=== PATIENT | male | born 1990 | race Caucasian/White ===

== ENCOUNTER → 2017-10-09 | Outpatient (CLI) | payer BC ==
[~2017-10-09] MED LIST: ATIVAN0.5 MG PO
== END ==
LOC: M.RAD 13:15
DX: N20.1 Calculus of ureter (principal); R35.0 Frequency of micturition

== ENCOUNTER → 2017-10-17 | Outpatient (CLI) | payer BC | LOC: M.RAD 10:40 | DX: N28.89 Other specified disorders of kidney and ureter (principal) ==

== ENCOUNTER 2021-02-19 02:13 | Observation (INO) | payer OTHER ==
[~2021-02-19] VITALS: Ht 180.3 cm; Wt 115.2 kg
--- NOTE | ~2021-02-19 | OP ---
[facility] [address] [place] [address] OPERATIVE REPORT Name: EBEN GORE Room: [address] Niki#: [id number] Admission: 02/19/21 Attend Phys: Paulino Rodriges Discharge: Date of : 89 Report #: [id number] THIS REPORT FOR: cc: FAM - Family physician unknown FAM - Family physician unknown Paulino Rodriges MD ~ DATE OF SURGERY: 02/19/2021 PREOPERATIVE DIAGNOSIS: Acute appendicitis. POSTOPERATIVE DIAGNOSIS: Acute appendicitis. OPERATION: Laparoscopic appendectomy. SURGEON: Paulino Rodriges MD ANESTHESIA: General. ESTIMATED BLOOD LOSS: Minimal. SPECIMENS: Appendix. DESCRIPTION OF PROCEDURE: After informed consent was obtained, the patient was brought to the operating room and placed supine. SCDs were placed and working, preoperative antibiotics were administered, general anesthesia was induced. The abdomen was prepped and draped in the usual sterile fashion. A 10 mm incision was made below the umbilicus. Fascia was incised and a trocar was placed. Pneumoperitoneum was established. Right upper quadrant and left lower quadrant 5 mm trocars were placed. The appendix was grasped and retracted anteriorly. Mesoappendix was ligated using the LigaSure device. The base of the appendix was then ligated using the PDS Endoloop. Appendix was cut and placed into an Endopouch. It was removed. The ports were removed under direct vision. The fascia was closed with a usekeq-af-wyxif 0 Vicryl. Skin was closed with 4-0 Monocryl. Incisions were dressed with Steri-Strips. COMPLICATIONS: None. DISPOSITION: The patient was taken to recovery in satisfactory condition. By: [id number] Rodriges MD /nt
[2021-02-19] MEDS ORDERED: ZESTRIL10 MG (02:26)
[2021-02-19 02:28] VITALS: BP 144/78
[2021-02-19 02:47] LABS: ABSOLUTE BASOPHILS 0.1 thou/uL (0.0-0.2); ABSOLUTE EOSINOPHILS 0.1 thou/uL (0.0-0.7); ABSOLUTE MONOCYTES 1.3 thou/uL (0.0-1.2); ABSOLUTE NEUTROPHILS 11.8 thou/uL (1.6-8.1); BASOPHILS 0.6 %; EOSINOPHILS 0.6 %; HEMATOCRIT 44.8 % (42.0-52.0); HEMOGLOBIN 15.5 gm/dL (14.0-18.0); LYMPHOCYTES 13.2 %; MCH 31.5 pg (26.0-34.0); MCHC 34.5 g/dL (28.0-37.0); MCV 91.4 fL (80.0-100.0); MONOCYTES 8.6 %; MPV 8.3 fl. (7.2-11.1); NUCLEATED RBCS 0 /100WBC; PLATELET COUNT* 193 thou/uL (150-400); RBC 4.91 mil/uL (4.50-6.00); WBC 15.3 thou/uL (4.0-11.0)
[2021-02-19 03:14] LABS: CALCIUM 8.8 mg/dL (8.5-10.1); POTASSIUM 3.5 mmol/L (3.5-5.1)
[2021-02-19 03:19] LABS: ALBUMIN 4.4 g/dL (3.4-5.0); TOTAL BILIRUBIN 0.6 mg/dL (<0.1-1.0); TOTAL PROTEIN 7.1 g/dL (6.4-8.2)
[2021-02-19 04:30] VITALS: BP 140/85
[2021-02-19 04:45] VITALS: BP 156/100
[2021-02-19 06:27] LABS: URINE BILIRUBIN NEGATIVE (Negative); URINE BLOOD NEGATIVE (Negative); URINE CLARITY CLEAR; URINE COLOR STRAW; URINE GLUCOSE-RANDOM NEGATIVE (Negative); URINE KETONES TRACE (Negative); URINE LEUKOCYTES NEGATIVE (Negative); URINE NITRITE NEGATIVE (Negative); URINE PROTEIN NEGATIVE (Negative); URINE UROBILINOGEN 0.2 E.U./dl (0.2-1.0)
[2021-02-19 09:03] VITALS: BP 156/100
--- NOTE | 2021-02-19 10:45 | EKG ---
[place] [address] ELECTROCARDIOGRAM REPORT Name: SOFÍAEBEN Room: [address] M.R.#: [id number] Admission: 02/19/21 Attend Phys: Paulino Pitts Discharge: Date of : 89 Date of Service: 02/19/21 0717 Report #: [id number] THIS REPORT FOR: //name// [facility] Test Date: 2021-02-19 Test Time: 07:17:22 Pat Name: EBEN GORE Department: Room: [address] Gender: M Truck Loader: LEANNE : 1990 Requested By: aJrred Timmons Order Number: [id number] Emily MD: Toby Miller Measurements Intervals [place] Rate: 57 P: 53 ND: 133 QRS: 70 QRSD: 114 T: 43 QT: 439 QTc: 428 Interpretive Statements Sinus rhythm Borderline intraventricular conduction delay Compared to ECG 03/28/2017 22:37:40 rate has slowed Electronically Signed On 02-19-2021 10:44:34 CDT by Toby Miller [email or web address] <ELECTRONICALLY SIGNED> By: Toby Miller MD, [facility] 02/19/21 1044 07 6 Toby Miller MD, [facility] /EPI
--- NOTE | 2021-02-21 14:07 | PATH ---
[address] [address] PATHOLOGY RPT PROCEDURE Name: EBEN GORE Room: [address] Niki#: [id number] Admission: 02/19/21 Date of : [birth year] Discharge: 02/19/21 Report #: [id number] Path Case #: [id number] [facility] Accession Number: [id number] . 01 Material submitted: . appendix - APPENDIX . 01 Clinical history: . ACUTE APPENDICITIS . 02 Diagnosis: Appendix: - Acute appendicitis, periappendicitis and serositis. . (ERA:mml; 02/20/2021) [facility] 02/20/2021 1609 Local . 02 Electronically signed: . Robby Schumacher MD, Pathologist NPI- [id number] . 01 Gross description: . Fixative: Formalin Labeled: Appendix Appendix length: 8.3 cm Appendix diameter: 1.5 cm Mesoappendix: 2.5 cm Proximal margin: Stapled Serosa: Purple-so and smooth Cut surface: Dilated Luminal diameter: Up to 1.4 cm Perforation: Not identified Lesions/abnormalities: None identified . Proximal margin and bisected tip in cassette A1. Additional employee relations representative cross-sections from proximal to distal in cassette A2-A3. ([facility]; 02/19/2021) NRI/NRI 02/20/2021 1607 Local . 02 Pathologist provided ICD-10: K35.80, K65.8 . 02 CPT . 770177 Specimen Comment: A courtesy copy of this report has been sent to [phone] Specimen Comment: Report sent to Performed at: [address] [address] PATHOLOGY RPT PROCEDURE Name: EBEN GORE Room: [address]#: [id number] Admission: 02/19/21 Date of : 89 Discharge: 02/19/21 Report #: [id number] Path Case #: [id number] [address] [id number] MD Carl Reynoso MD Phone: [phone] Performed at: [address] [address] [address], [place], [place] [id number] MD Robby Schumacher MD Phone: [phone]
== END 2021-02-19 12:21 | disposition home or self-care (01) ==
LOC: M.ERS 02:13 → M.2W 04:03 → M.TBA-ER 04:03 → M.2W 04:36
PROVIDERS: Emergency Medicine; ADMIT Surgery; ATTEND Surgery
DX: K35.80 Unspecified acute appendicitis (principal); Z20.822 Contact with and (suspected) exposure to COVID-19; F17.210 Nicotine dependence, cigarettes, uncomplicated; Z88.0 Allergy status to penicillin; Z79.899 Other long term (current) drug therapy